=== PATIENT | female | born 1990 | race Caucasian/White ===

== ENCOUNTER 2016-10-13 18:07 | Emergency (ER) | payer MEDICAID ==
[2016-10-13 18:28] VITALS: BP 131/76; PULSE 92; RESP 16; TEMP 98.8; O2SAT 100
--- NOTE | 2016-10-13 19:19 | ED PDOC ---
HPI: Abdomen Time Seen by Provider: 10/13/16 18:42 Chief Complaint (Nursing): Abdominal Pain Past Medical History Vital Signs: Last Vital Signs Temp 98.8 F 10/13/16 18:25 Pulse 92 H 10/13/16 18:25 Resp 16 10/13/16 18:25 BP 131/76 10/13/16 18:25 Pulse Ox 100 10/13/16 18:25 - Immunization History Hx Tetanus Toxoid Vaccination: No Hx Influenza Vaccination: No Hx Pneumococcal Vaccination: No - Home Medications Home Medications: Ambulatory Orders Medication Instructions Recorded Acetaminophen [Tylenol] 650 mg PO Q6 PRN #30 ter 11/11/13 Ondansetron ODT [Zofran ODT] 1 odt PO BID PRN #20 odt 11/11/13 Ibuprofen 600 mg PO Q4 #0 tab 05/26/14 Oxycodone HCl/Acetaminophen 1 tab PO Q6 PRN #0 tab 05/26/14 [Percocet 325 mg-5 mg] - Allergies Allergies/Adverse Reactions: Allergies Allergy/AdvReac Type Severity Reaction Status Date / Time No Known Allergies Allergy Verified 10/13/16 18:25 - ECG O2 Sat by Pulse Oximetry: 100
--- NOTE | 2016-10-13 19:22 | ED PDOC ---
HPI: Female Pain Time Seen by Provider: 10/13/16 18:42 Chief Complaint (Nursing): Abdominal Pain Chief Complaint (Provider): Female genitourinary History Per: Patient History/Exam Limitations: no limitations Onset/Duration Of Symptoms: Days (1x week) Current Symptoms Are (Timing): Still Present Severity: Moderate Additional Complaint(s): 26 year old female currently 16x weeks presents to the ED with complaints of white vaginal discharge with associated lower abdominal pain and decreased movement that started 1x week ago. She denies having any vaginal bleeding. She had an LNP done 16 weeks ago and has not had a ultrasound yet. She denies having any other medical complaints. PMD: Amy Cox MD in [facility] in [place]. Abnormal Vaginal Bleeding: No : 3 Para: 2 Past Medical History Reviewed: Historical Data, Nursing Documentation, Vital Signs Vital Signs: Last Vital Signs Temp 98.8 F 10/13/16 18:25 Pulse 92 H 10/13/16 18:25 Resp 16 10/13/16 18:25 BP 131/76 10/13/16 18:25 Pulse Ox 100 10/13/16 19:19 - Medical History PMH: No Chronic Diseases - Surgical History Surgical History: No Surg Hx - Family History Family History: States: Unknown Family Hx - Social History Current smoker - smoking cessation education provided: No Alcohol: None Drugs: Denies - Immunization History Hx Tetanus Toxoid Vaccination: No Hx Influenza Vaccination: No Hx Pneumococcal Vaccination: No - Home Medications Home Medications: Ambulatory Orders Medication Instructions Recorded Acetaminophen [Tylenol] 650 mg PO Q6 PRN #30 ter 11/11/13 Ondansetron ODT [Zofran ODT] 1 odt PO BID PRN #20 odt 11/11/13 Ibuprofen 600 mg PO Q4 #0 tab 05/26/14 Oxycodone HCl/Acetaminophen 1 tab PO Q6 PRN #0 tab 05/26/14 [Percocet 325 mg-5 mg] Nitrofurantoin Macrocrystals 100 mg PO BID #20 cap 10/13/16 [Macrobid] - Allergies Allergies/Adverse Reactions: Allergies Allergy/AdvReac Type Severity Reaction Status Date / Time No Known Allergies Allergy Verified 10/13/16 18:25 Review of Systems ROS Statement: Except As Marked, All Systems Reviewed And Found Negative Gastrointestinal: Positive for: Abdominal Pain (lower abdominal pain) Genitourinary Female: Positive for: Vaginal Discharge, Other (decreased movement). Negative for: Vaginal Bleeding Physical Exam - Reviewed Nursing Documentation Reviewed: Yes Vital Signs Reviewed: Yes - Physical Exam Appears: Positive for: Well, Non-toxic, No Acute Distress Head Exam: Positive for: ATRAUMATIC, NORMOCEPHALIC Skin: Positive for: Normal Color, Warm, Dry Cardiovascular/Chest: Positive for: Regular Rate, Rhythm Respiratory: Positive for: Normal Breath Sounds. Negative for: Respiratory Distress Gastrointestinal/Abdominal: Positive for: Normal Exam, Soft, Other (gravid. fundus at umbilicus.). Negative for: Tenderness Back: Positive for: Normal Inspection. Negative for: L CVA Tenderness, R CVA Tenderness Neurologic/Psych: Positive for: Alert, Oriented (3x) - Laboratory Results Result Diagrams: 10/13/16 19:20 10/13/16 19:20 - ECG O2 Sat by Pulse Oximetry: 100 (RA) Pulse Ox Interpretation: Normal Medical Decision Making Medical Decision Makin:42 Initial impression: 26 year old female 16 weeks with white vaginal discharge and lower abdominal pain. Initial plan: * US OB limited * type and screen * beta-HCG quantitative * CMP * udip * CBC * reevaluation Scribe Attestation: Documented by Donna Grove, acting as a scribe for Quintin Lazaro MD. Provider Scribe Attestation: All medical record entries made by the Scribe were at my direction and personally dictated by me. I have reviewed the chart and agree that the record accurately reflects my personal performance of the history, physical exam, medical decision making, and the department course for this patient. I have also personally directed, reviewed, and agree with the discharge instructions and disposition. Disposition - Clinical Impression Clinical Impression: UTI (urinary tract infection) during - Patient ED Disposition Is Patient to be Admitted: No Counseled Patient/Family Regarding: Studies Performed, Diagnosis, Need For Followup, Rx Given - Disposition [facility]errals[facility]Outside] Disposition: Routine/Home Disposition Time: 21:45 Condition: FAIR Prescriptions: Nitrofurantoin Macrocrystals [Macrobid] 100 mg PO BID #20 cap Instructions: Urinary Tract Infection in (ED)
[2016-10-13 19:35] LABS: BASO % 0.3 % (0.0-2.0); EOS # 0.1 K/uL (0.0-0.7); EOS % 0.6 % (0.0-4.0); HEMATOCRIT 35.1 % (34.0-47.0); LYMPH # 2.6 K/uL (1.0-4.3); LYMPH % 27.7 % (20.0-40.0); MEAN CELL VOLUME 82.7 fl (81.0-99.0); MEAN CORPUSCULAR HEMOGLOBIN 27.3 pg (27.0-31.0); MEAN PLATELET VOLUME 7.8 fl (7.2-11.7); MONO # 0.5 K/uL (0.0-0.8); MONO % 5.6 % (0.0-10.0); NEUT # 6.1 K/uL (1.8-7.0); NEUT % 65.8 % (50.0-75.0); NRBC % 0.1 % (0.0-0.0); RED CELL DISTRIBUTION WIDTH 14.2 % (11.5-14.5); WHITE BLOOD COUNT 9.3 K/uL (4.8-10.8)
[2016-10-13 19:50] LABS: ALB/GLOB RATIO 1.2 (1.0-2.1); ALKALINE PHOSPHATASE 44 U/L (38-126); ALT/SGPT 31 U/L (9-52); AST/SGOT 33 U/L (14-36); BILIRUBIN,TOTAL 0.3 mg/dl (0.2-1.3); BLOOD UREA NITROGEN 5 mg/dl (7-17); CALCIUM 9.2 mg/dL (8.4-10.2); CARBON DIOXIDE 21 mmol/L (22-30); CHLORIDE 105 mmol/L (98-107); GFR AFRICAN-AMERICAN > 60; GLUCOSE,RANDOM 82 mg/dL (65-105); POTASSIUM 4.6 MMOL/L (3.6-5.0); SODIUM 138 mmol/l (132-148); TOTAL PROTEIN 7.9 G/DL (6.3-8.2)
--- NOTE | 2016-10-13 21:17 | US ---
EXAM: US After First Trimester, Transabdominal CLINICAL HISTORY: 26 years old, female; Signs and symptoms; Lmp or gestational age (in weeks): 05/30/16; Antepartum complications; Other: Vag discharge; ; Additional info: Vaginal discharge TECHNIQUE: Real-time transabdominal obstetrical ultrasound of the maternal pelvis and a second or third trimester with image documentation. COMPARISON: No relevant prior studies available. FINDINGS: Fetus: Single live intrauterine gestation. Heart rate: heart rate of 141 beats per minute. Presentation: Cephalic. Placenta: Anterior placenta. No placenta previa or abruption. Amniotic fluid: Normal. Anatomy: No gross anomaly is appreciated. BIOMETRICS Gestational age by US: Estimated gestational age of 20 weeks 6 days by measurements. EFW: Estimated weight of 383 g. BPD: 5.0 cm, correlating with 21 weeks 0 days. HC: 18.0 cm, correlating with 20 weeks 3 days. AC: 15.0 cm, correlating with 20 weeks 2 days. FL: 3.7 cm, correlating with 21 weeks 5 days. MATERNAL: Uterus: Unremarkable. No myometrial mass. Cervix: No cervical dilatation or effacement. Adnexa: Ovaries: Not visualized. No adnexal masses. Free fluid: No significant free fluid. IMPRESSION: 1. Single live intrauterine gestation. 2. Incidental/non-acute findings are described above.
== END 2016-10-13 21:49 | disposition home or self-care (01) ==
LOC: H.ER 18:07
DX: O23.40 Unspecified infection of urinary tract in pregnancy, unspecified trimester (principal); Z3A.16 16 weeks gestation of pregnancy; R10.30 Lower abdominal pain, unspecified

== ENCOUNTER 2017-02-28 07:13 | Inpatient (IN) | payer MEDICAID, OTHER ==
[2017-02-28 07:41] VITALS: BMI 31.8
[2017-02-28] MEDS ORDERED: Lactated Ringer's 1,000 ML IV SCH ×2 (08:00→16:08)
[2017-02-28] MEDS ORDERED: Sodium Chloride 0.9% 1,000 ML IV SCH (08:00)
[2017-02-28] MEDS: Lactated Ringer's 2,000 ML IV SCH ×2 (08:00→08:54)
[2017-02-28] MEDS ORDERED: Oxytocin 30 units/LR 500ML 30 U/500 ML BAG IV SCH ×2 (08:00→08:15)
[2017-02-28] MEDS ORDERED: ceFAZolin 1 GM in Sodium Chloride 0.9% 100 ML IVPB ONE (08:18)
[2017-02-28 09:00] LABS: BASO % 0.3 % (0.0-2.0); EOS # 0.1 K/uL (0.0-0.7); HEMATOCRIT 35.6 % (34.0-47.0); LYMPH # 2.2 K/uL (1.0-4.3); LYMPH % 31.7 % (20.0-40.0); MEAN CELL VOLUME 81.9 fl (81.0-99.0); MEAN CORPUSCULAR HEMOGLOBIN 27.5 pg (27.0-31.0); MEAN CORPUSCULAR HGB CONC 33.5 g/dL (33.0-37.0); MEAN PLATELET VOLUME 7.8 fl (7.2-11.7); MONO # 0.5 K/uL (0.0-0.8); MONO % 7.4 % (0.0-10.0); NEUT # 4.2 K/uL (1.8-7.0); NEUT % 59.6 % (50.0-75.0); RED CELL DISTRIBUTION WIDTH 14.6 % (11.5-14.5)
[2017-02-28] MEDS ORDERED: ePHEDrine 50 mg/ml Inj ONE (09:42)
[2017-02-28] MEDS ORDERED: Morphine 1 mg/ml preservative-free Inj(Duramorph) ONE (09:44)
[2017-02-28] MEDS ORDERED: Phenylephrine 10 mg/ml Inj ONE (09:49)
[2017-02-28] MEDS ORDERED: ceFAZolin 2 GM in Sodium Chloride 0.9% 100 ML IVPB ONE (10:54)
[2017-02-28] MEDS ORDERED: Oxycodone/Acetaminophen 5/325 mg Tab PO PRN ×2 (15:39→16:08)
[2017-02-28] MEDS ORDERED: DiphenhydrAMINE 50 mg/ml Inj IVP PRN ×2 (15:39→16:08)
[2017-02-28] MEDS: Lactated Ringer's 1,000 ML IV SCH (20:51)
[2017-02-28] MEDS: Influenza Vaccine 18yr & older 0.5 ML/45 MCG SYR IM ONE ×2 (22:15→23:03)
[2017-03-01] MEDS: Lactated Ringer's 1,000 ML IV SCH (05:00)
[2017-03-01 06:07] LABS: BASO % 0.2 % (0.0-2.0); EOS # 0.1 K/uL (0.0-0.7); EOS % 0.7 % (0.0-4.0); HEMATOCRIT 32.6 % (34.0-47.0); LYMPH # 2.2 K/uL (1.0-4.3); LYMPH % 22.1 % (20.0-40.0); MEAN CELL VOLUME 83.8 fl (81.0-99.0); MEAN CORPUSCULAR HEMOGLOBIN 27.4 pg (27.0-31.0); MEAN CORPUSCULAR HGB CONC 32.7 g/dL (33.0-37.0); MEAN PLATELET VOLUME 7.6 fl (7.2-11.7); MONO # 0.9 K/uL (0.0-0.8); NEUT # 6.8 K/uL (1.8-7.0); RED CELL DISTRIBUTION WIDTH 14.9 % (11.5-14.5)
--- NOTE | 2017-03-01 07:53 | OBPPN ---
Datetime: 03/01/2017 06:21 PP Pain Prov: Within normal limits PP Nausea Prov: Denies PP Flatus Prov: Yes PP BM Prov: No PP Breasts Prov: Not Done PP Heart Prov: Normal PP Lungs Prov: Normal PP Abdomen/Uterus Prov: Normal PP Lochia Prov: Normal PP Extremities Prov: Normal PP C/S Incision Prov: Normal PP Impression Prov: Normal progression PP Plan Prov: Continue present management PP Progress Note Prov: 26 yo F now s/p on 02/28/17, POD 1. Seen and examined at [facility]. Pt reports uneventful overnight; reports moderate pelvic pain that is controlled by medication. She has not been OOB and ambulating yet. Tolerated liquid PO diet well last night. Has passed gas. In cision dressing has dried blood that has not saturated dressing. She is feeding baby via breast and b ottle. She requests a circumcision for the baby. Denies fevers, dizziness, chills, nausea/vomiting/di arrhea, chest pain/shortness of breath, calf pain, lightheadedness. PE: GEN: A_O, resting comfortably in bed, in no acute distress Lung: clear to auscultation bilaterally, normal respiratory effort CVS: S1/S2+, RRR Abd: +BS, firm fundus below umbilicus. Dressing has some dried blood that has not saturated throug h dressing EXT: no edema, negative Radha's, calves non-tender. Assessment: 26 yo F, s/p on 02/28/17, doing well on POD 1. Plan: Remove gould, advance diet to regular, remove dressing today. Encourage and am bulation. Pain control as ordered. Start ferrous sulfate 325 mg PO once daily due to Hgb 10.7 post pa rtum. -[email or web address] OB Hospitalist Addendum: Pt seen and examined by me. Agree w/ above. POD 1 s/p repeat c/s, doing well, breast and bottle feeding. Continue current care. (ES) Vital Signs Provider PP: Reviewed
--- NOTE | 2017-03-01 08:44 | OBADHP ---
Datetime: 02/28/2017 09:23 Admit Comment, IP Provider: Irish speaking, Gas Charger #: [id number] Jadiel 26 y/o female at 39. 6 weeks confirmed by 14 week U/S here today for a scheduled C section. LMP . Denies CTX, Vaginal Bleeding, fluid loss, dysuria, headache, SOB, n/v. Reports good mov ement. PNC: Seen at [place] O+, GBS negative, G/C negative, Hep B surface AB +, Hep B core AB +, Heb B Surface Ag negative, He p C neg, HIV nonreactive, Quantiferon negative, UA negative, Vaginal Cx: BV +, Lala +, Rubella imm une, Varicella immune OBHx: 2 previous C sections 2011, male, full term, GHTN, no meds. 2014, female, full term, no complications PMed Hx: denies PSurgHx: c section x 2 Meds: PNV Allergies: NKDA Social: denies smoking, alcohol, drugs Physical Exam: General: NAD Cardiac: RRR, no murmurs Pulm: Clear to auscultation BL Abdomen: Gravid, Non tender Extremities: Trace Edema FHR: 120-135, moderate variability, accelerations, no decelerations Assessment _ Plan: IUP at 39.6 weeks gestation admitted for scheduled C section, not in active labor. Preop labs, IV hydration, pre-op ABX prophylaxis, monitor maternal vital signs and continuous, FH R tracings. Discussed care with OB attending hotel front desk agent Wilberto Gray PGY1 Pelvic Type - PN: Adequate Extremities - PN: Normal Abdomen - PN: Normal Back - PN: Normal Breast - PN: Normal Lungs - PN: Normal Heart - PN: Normal Thyroid - PN: Normal Neurologic - PN: Normal HEENT - PN: Normal General - PN: Normal IP Chief Complaint: Scheduled Section Genitourinary Exam: Normal DTRs - PN: Normal EGA AdmitDate IP: 39.1 IP Adm Impression: Term, intrauterine IP Admit Plan: Admit to unit
--- NOTE | 2017-03-01 09:23 | OBDS ---
DELIVERY PERSONNEL Delivery Doctor: Mary Rogers MD Concert Promoter: Bela Rolle RN Anesthesiologist: Fawad Flynn MD MATERNAL INFORMATION Delivery Anesthesia: Spinal Medications in Delivery: Pitocin 30 mu/500 mL _ Pitocin 20mu/1000 mL Estimated Blood Loss (ml): 800 Placenta Cultured: No Maternal Complications: None Provider Comments: Repeat low flap transverse or sexually Pfannenstiel incision. Patient delivered viable male with Apgars of 9 and 9 at one and 5 minutes respectively. Nor mal uterus, normal tubes and ovaries bilaterally. Estimated blood loss 800 mL Fluids 2000 mL lactated Ringer's Urine output 100 mL clear no complications Patient tolerated procedure well LABOR SUMMARY EDC: 03/06/2017 00:00 No. Babies in Womb: 1 Attempted: No Labor Anesthesia: None LABOR INFORMATION Reason for Induction: Not Applicable Oxytocin: N/A Group B Beta Strep: Negative Antibiotics # of Doses: 1 Antibiotics Time of Last Dose: 1211 Steroids Given: None Reason Steroids Not Administered: Not Applicable MEMBRANES Membranes Rupture Method: Artificial Rupture of Membranes: 02/28/2017 12:55 Length of Rupture (hrs): 0.03 Amniotic Fluid Color: Clear Amniotic Fluid Amount: Moderate Amniotic Fluid Odor: Normal STAGES OF LABOR Stage 3 hrs: 0 Stage 3 min: 1 CSECTION DELIVERY Primary Indication: Repeat Elective CSection Urgency: Elective CSection Incidence: Repeat Labor: N/A Elective: Elective CSection Incision: Lower Uterine Transverse BABY A INFORMATION Delivery Date/Time: 02/28/2017 12:57 Method of Delivery: Born in Route : No : N/A Forceps: N/A Vacuum Extraction: N/A Shoulder Dystocia : No SHOULDER DYSTOCIA BABY A Infant Delivery Date/Time: 02/28/2017 12:57 PRESENTATION/POSITION BABY A Presentation: Cephalic PLACENTA INFORMATION BABY A Placenta Delivery Time : 02/28/2017 12:58 Placenta Method of Delivery: Expressed Placenta Status: Delivered SCORES BABY A Heart Rate 1 min: >100 bpm Resp Effort 1 min: Good Cry Reflex Irritability 1 min: Cough or Sneeze or Pulls Away Muscle Tone 1 min: Active Motion Color 1 min: Body Leon, Extremities Blue Resuscitation Effort 1 min: N/A SCORE 1 MIN: 9 Heart Rate 5 min: >100 bpm Resp Effort 5 min: Good Cry Reflex Irritability 5 min: Cough or Sneeze or Pulls Away Muscle Tone 5 min: Active Motion Color 5 min: Body Leon, Extremities Blue Resuscitation Effort 5 min: N/A SCORE 5 MIN: 9 Heart Rate 10 min: >100 bpm Resp Effort 10 min: Good Cry Reflex Irritability 10 min: Cough or Sneeze or Pulls Away Muscle Tone 10 min: Active Motion Color 10 min: Body Leon, Extremities Blue SCORE 10 MIN: 9 INFANT INFORMATION BABY A Gestational Age at Delivery: 39.1 Gestational Status: Term Infant Outcome : Liveborn Infant Condition : Stable Sex: Male IDENTIFICATION/MEDS BABY A ID Band Number: [id number] ID Band Location: Left Leg; Left Arm Sensor Applied: Yes Sensor Number: 2 Sensor Location : Right Leg WEIGHT/LENGTH BABY A Birthweight (gms): 3460 Weight (lb): 7 Infant Weight (oz): 10 CORD INFORMATION BABY A No. Cord Vessels: 3 Cord Blood Taken: Yes Infant Suction: Mouth; Nose
--- NOTE | 2017-03-01 14:27 | OP ---
PROCEDURE DATE: 02/28/2017 PREOPERATIVE DIAGNOSIS: Elective repeat section at 39 weeks' gestational age. POSTOPERATIVE DIAGNOSIS: Elective repeat section at 39 weeks' gestational age. OPERATION PERFORMED: Repeat low flap transverse section via Pfannenstiel incision. OPERATIVE FINDINGS: Viable infant, male, with Apgars of 9 and 9 at 1 and 5 minutes respectively, normal uterus, normal tubes and ovaries bilaterally. ESTIMATED BLOOD LOSS: 800 mL. FLUIDS: 2000 mL of lactated Ringer's. URINE OUTPUT: 100 mL of clear urine at the end of procedure. COMPLICATIONS: None. SURGEON: Alexander Rogers MD. WOOD CUTTER: Zaheer Singleton MD. Dr. Singleton was present from the beginning of the procedure to the end of procedure. She was integral in exposing the surgical field, removing intraoperative adhesions, controlling intraoperative bleeding, and manual delivery of the infant. ANESTHESIOLOGIST: Hood Flynn MD TYPE OF ANESTHESIA: Spinal. DESCRIPTION OF PROCEDURE: The patient was taken to the operating room where spinal anesthesia was found to be adequate. The patient was prepped and draped in a normal sterile fashion in the dorsal supine position with a leftward tilt. A Pfannenstiel skin incision was made with a scalpel. This was carried down through to the underlying layer of fascia with the scalpel. Midline defect was made in the fascial layer with a scalpel. The fascial incision was then extended bilaterally sharply with curved Augustin scissors. The fascial layer was from the underlying rectus muscles both bluntly and sharply with curved Augustin scissors. The rectus muscles were at the midline. The peritoneum was then identified, tented up with Amna clamps x2, and entered sharply with Metzenbaum scissors. This peritoneal incision was then extended bilaterally with Metzenbaum scissors. The bladder flap was created digitally. The Anayeli retractor was placed over the urinary bladder. The uterus was incised with a scalpel. The uterine incision was extended bilaterally bluntly. The infant's head was delivered atraumatically. Nose and mouth were suctioned with bulb suction. The remainder of the was delivered without complication. The cord was clamped and cut. The infant was handed off to waiting pediatricians. The placenta was removed manually. The uterus was cleared of all clots and debris. The uterine incision was repaired with 0 Vicryl in a running, locked fashion. Reinspection of the uterine incision proved excellent hemostasis. The abdomen and pelvis were irrigated with copious amounts of warm normal saline. Reinspection of the uterine incision proved excellent hemostasis. All instruments were removed from the patient. The peritoneal layer was closed with a running stitch of 2-0 chromic. The rectus muscles were re-approximated in the midline with a running stitch of 2-0 chromic. The fascial layer was closed with a running stitch of 0 Vicryl. Subcutaneous tissue was closed with a running stitch of 3-0 plain. The skin was closed with radha. The patient tolerated the procedure well. All sponge count, lap count, and needle counts were correct x2. There were no complications. The patient was given 2 g of Ancef just prior to the beginning of the procedure. There were no complications. The patient was taken to the recovery room awake and in stable condition. Alexander Rogers MD
[2017-03-01] MEDS: Docusate-Senna 50 mg-8.6 mg Tab PO SCH (22:23)
[2017-03-02] MEDS: Oxycodone/Acetaminophen 5/325 mg Tab PO PRN (03:19)
[2017-03-02] MEDS: Docusate-Senna 50 mg-8.6 mg Tab PO SCH (22:39)
--- NOTE | 2017-03-03 08:28 | OBPPN ---
Datetime: 03/03/2017 06:45 PP Pain Prov: Within normal limits PP Nausea Prov: Denies PP Flatus Prov: Yes PP BM Prov: Yes PP Breasts Prov: Not Done PP Heart Prov: Normal PP Lungs Prov: Normal PP Abdomen/Uterus Prov: Normal PP Lochia Prov: Normal PP Vulva/Perineum Prov: Normal PP CVA Tenderness Prov: Normal PP Extremities Prov: Normal PP C/S Incision Prov: Normal PP Progress Prov: Normal PP Impression Prov: Normal progression PP Plan Prov: Discharge Vital Signs Provider PP: Reviewed Datetime: 03/02/2017 06:10 PP Progress Note Prov: 26 yo F now s/p on 02/28/17, POD 2. Seen and examined at [facility]. Pt reports uneventful overnight; reports mild-moderate pelvic pain that is controlled by medicat ion. She has been OOB and ambulating to the bathroom, but reports pain while doing so. Tolerated regu lar PO diet yesterday. She is voiding freely and has been passing gas. Lochia less than menses in vol ume. Incision clean and dry; radha in place. She is feeding baby via breast and bottle; having some difficulty and wants to speak with managing consultant clinical professor. Denies fevers, dizziness, chi lls, nausea/vomiting/diarrhea, chest pain/shortness of breath, calf pain, lightheadedness. 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 Incision is clean and dry, radha in place. EXT: no edema, negative Radha's, calves non-tender. Assessment: 26 yo F, s/p on 02/28/17, doing well on POD 2. Plan: Encourage and ambulation. Pain control as ordered. Anticipated discharge nory crain -[email or web address] OB attending addendum: Patient complains of constipation and desires alleviation. Option of rectal suppository discussed with patient and she states she desired the rectal suppository. Discussed with the nurse and nurse prepared improving juice cocktail and stated she would offer th at to patient as well and the patient desired she would take that and take rectal suppository levator no relief. IP PP Procedures: None
[2017-03-03] MEDS: Oxycodone/Acetaminophen 5/325 mg Tab PO PRN (09:13)
--- NOTE | 2017-03-03 13:29 | OBPPN ---
Datetime: 03/03/2017 06:45 PP Progress Note Prov: 26 yo F now s/p on 02/28/17, POD 3. Seen and examined at [facility]. Pt reports uneventful overnight; continues to reports moderate pelvic pain that is controlled by medication. She has been OOB and ambulating more than before. Tolerated regular PO diet, and has had a BM. Lochia less than menses in volume. She is feeding baby via breast and bottle. Denies fevers, d izziness, chills, nausea/vomiting/diarrhea, chest pain/shortness of breath, calf pain, lightheadednes s. PE: GEN: A_O, resting comfortably in bed, in no acute distress Lung: clear to auscultation bilaterally, normal respiratory effort CVS: S1/S2+, RRR Abd: +BS, firm fundus below umbilicus. Incision clean and dry, radha in place. EXT: no edema, negative Radha's, calves non-tender. Assessment: 26 yo F, s/p on 02/28/17, doing well on POD 3. Plan: Discharge home today with instructions for follow up. [email or web address] The patient was ssen with the resident I agree with the note
--- NOTE | 2017-03-03 13:29 | OBDCSUM ---
Datetime: 03/03/2017 06:47 Discharged to, Provider: Home Follow up at, Provider: [facility] Disch Instr Activity: Normal activity; May be up to bathroom; May be up for meals; May Shower Disch Instr Diet: Regular Discharge Instructions, Provider: Routine instructions given Discharge Diagnosis, Provider: Term Delivered Discharge Time: 03/03/2017 06:47 Follow up in weeks, Provider: 1 week Contraception discussed, Prov: Yes Disch Activity Restrictions: No lifting; Minimize stair-climbing; No sexual activity; Nothing in vag clint - [place], tampons, douche Discharge Comment, Provider: 26 yo F, now s/p uncomplicated on 02/28/17; term male de livered. Patient and doing well on POD 3. Discharge instructions: Encourage and ambulation PNV 1 tab PO/day Percocet 5-325 for severe pain up to every 6 hours, PRN. Ibuprofen 600 mg 1 tab up to every 6 hours PRN if moderate pain. Ambulate with caution, nothing per vagina, no heavy lifting, avoid stairs. If excessive bleeding, or fever without relief from tylenol, go to ED. F/u at [facility] in 1 week for patient, and 2-3 days for infant. [email or web address] The patient was ssen with the resident I agree with the note. Patient cleared for discharge Contraception after Delivery: IUD
[2017-03-03 20:45] VITALS: BP 135/89; PULSE 99; RESP 17; TEMP 98.2; O2SAT 99
== END 2017-03-03 15:30 | disposition home or self-care (01) | DRG 371 ==
LOC: H.EROB2 07:13 → H.L&D 08:04 → H.OB/GYN 16:33
PROVIDERS: ADMIT Obstetrics & Gynecology; ATTEND Obstetrics & Gynecology
PROC: 10D00Z1 Extraction of Products of Conception, Low, Open Approach (ICD-10-PCS; principal; 2017-02-28)
PROC: 4A1HXCZ Monitoring of Products of Conception, Cardiac Rate, External Approach (ICD-10-PCS; 2017-02-28)
DX: O34.211 Maternal care for low transverse scar from previous cesarean delivery (principal); N85.8 Other specified noninflammatory disorders of uterus; Z37.0 Single live birth; Z3A.39 39 weeks gestation of pregnancy

== ENCOUNTER 2017-06-01 21:03 | Emergency (ER) | payer OTHER ==
[2017-06-01 21:03] VITALS: BMI 31.8
--- NOTE | 2017-06-01 22:12 | ED PDOC ---
HPI: General Adult Time Seen by Provider: 06/01/17 21:45 Chief Complaint (Nursing): Flu-like Symptoms Chief Complaint (Provider): sore throat History Per: Patient History/Exam Limitations: no limitations Onset/Duration Of Symptoms: Days (2) Current Symptoms Are (Timing): Still Present Additional History Per: Patient Additional Complaint(s): 27 y/o female presents with sore throat 2 days. Associated headache. Patient seen by her primary doctor yesterday and prescribed Augmentin but patient notes little relief. Denies neck pain, nausea/vomiting, cough, congestion, abdominal pain, changes in bowel movements. Last dose Ibuprofen 17:00. Of note, patient does not own thermometer and has not been checking temperature. Past Medical History Reviewed: Historical Data, Nursing Documentation, Vital Signs Vital Signs: Last Vital Signs Temp 98.9 F 06/02/17 01:21 Pulse 116 H 06/02/17 01:21 Resp 20 06/02/17 01:21 BP 136/66 06/02/17 01:21 Pulse Ox 100 06/02/17 01:21 - Medical History PMH: No Chronic Diseases Denies: Depression, Diabetes, HTN, Chronic Kidney Disease - Surgical History Surgical History: - Family History Family History: States: Unknown Family Hx - Immunization History Hx Tetanus Toxoid Vaccination: No Hx Influenza Vaccination: No Hx Pneumococcal Vaccination: No - Home Medications Home Medications: Ambulatory Orders Medication Instructions Recorded Acetaminophen [Tylenol] 650 mg PO Q6 PRN #30 ter 11/11/13 Ondansetron ODT [Zofran ODT] 1 odt PO BID PRN #20 odt 11/11/13 Ibuprofen 600 mg PO Q4 #0 tab 05/26/14 Oxycodone HCl/Acetaminophen 1 tab PO Q6 PRN #0 tab 05/26/14 [Percocet 325 mg-5 mg] Nitrofurantoin Macrocrystals 100 mg PO BID #20 cap 10/13/16 [Macrobid] - Allergies Allergies/Adverse Reactions: Allergies Allergy/AdvReac Type Severity Reaction Status Date / Time No Known Allergies Allergy Verified 02/28/17 07:41 Review of Systems ROS Statement: Except As Marked, All Systems Reviewed And Found Negative Constitutional: Positive for: Fever ENT: Positive for: Throat Pain Physical Exam - Reviewed Nursing Documentation Reviewed: Yes Vital Signs Reviewed: Yes - Physical Exam Appears: Positive for: Well, Non-toxic, No Acute Distress Head Exam: Positive for: ATRAUMATIC, NORMAL INSPECTION, NORMOCEPHALIC Skin: Positive for: Normal Color Eye Exam: Positive for: Normal appearance ENT: Positive for: Pharyngeal Erythema. Negative for: Tonsillar Exudate, Tonsillar Swelling Cardiovascular/Chest: Positive for: Regular Rate, Rhythm Respiratory: Positive for: Normal Breath Sounds Gastrointestinal/Abdominal: Positive for: Normal Exam Back: Positive for: Normal Inspection Extremity: Positive for: Normal ROM Neurologic/Psych: Positive for: Alert, Oriented - ECG O2 Sat by Pulse Oximetry: 98 - Progress ED Course And Treament: flu, strep, tylenol PO, Decadron IM On re-eval, patient reports improvement of symptoms. Patient educated on findings, discharged with instructions to follow up PMD 2-3 days. Advised to continue current medicaitons. Drink plenty of fluids. Return precautions given. Disposition - Clinical Impression Clinical Impression: Pharyngitis - Patient ED Disposition Is Patient to be Admitted: No Counseled Patient/Family Regarding: Diagnosis, Need For Followup - Disposition Disposition: Routine/Home Disposition Time: 01:27 Condition: IMPROVED Instructions: Pharyngitis (ED)
[2017-06-02 01:22] VITALS: BP 136/66; TEMP 98.9
[2017-06-02 01:35] VITALS: PULSE 100; RESP 18; O2SAT 99
== END 2017-06-02 01:35 | disposition home or self-care (01) ==
LOC: H.ER 21:03
DX: J02.9 Acute pharyngitis, unspecified (principal); R51 Headache
CPT/HCPCS: 81025; 87070; 87430; 87804; 96372; 99283; J1100